=== PATIENT | female | born 1960 | race Caucasian/White ===

== ENCOUNTER → 2021-01-26 09:57 | Outpatient (CLI) | payer OTHER, SELFPAY ==
--- NOTE | ~2021-01-26 | MR_ITS ---
EXAMINATION: MR knee LT wo con DATE: 01/26/2021 10:43 INDICATION: Anterior and lateral left knee pain and swelling post injury 3 months prior. TECHNIQUE: Magnetic resonance imaging (MRI) of the left knee was performed without intravenous contra st. Sequences included coronal PD-weighted FSE, coronal PD-weighted FS FSE, sagittal T2-weighted FSE , sagittal PD-weighted FS FSE and axial PD weighted fat saturated FSE. COMPARISON: None. FINDINGS: Medial compartment: Longitudinal horizontal tear extending to the inferior articular surface at the junction of the media l meniscal body and posterior horn. Articular cartilage is normal. Lateral compartment: Lateral meniscus is normal. 7 x 4 mm region of deep deep chondral fissuring/ulceration involving grea ter than 50% the cartilage thickness at the central weightbearing lateral femoral condyle. Remaining cartilage in the lateral compartment appears relatively normal. Patellofemoral compartment: Large regions of full/near full-thickness chondral ulceration at the patellar apical ridge and latera l facet with scattered mild subarticular edema. Additional juxtaposed deep chondral ulceration with m ore prominent subarticular edema at the superolateral quadrant of the lateral trochlea. Very small ce ntral subchondral osteophyte underlying an additional very small region of deep fissuring at the infe rior aspect of the medial trochlea. Ligaments and tendons: Anterior and posterior cruciate ligaments are normal. The medial collateral ligament and fibular aubree ateral ligament complex are normal. The extensor mechanism is normal. The visualized medial and later al hamstring tendons as well as the iliotibial band are normal. Fluid: Large left knee joint effusion with mild synovitis at the suprapatellar pouch. No loose osteochondral bodies identified. Osseous/other: Normal marrow signal aside from the previous noted subarticular edema. No fracture or pathologic sabi ow replacing process. IMPRESSION: 1. Small longitudinal horizontal tear at the junction of the body and posterior horn of the medial me niscus. 2. Osteoarthritis, moderate severity with extensive high-grade chondral malacia in the patellofemoral compartment and mild in the lateral compartment with small region of moderate grade chondromalacia a t the central weightbearing lateral femoral condyle. 3. Likely reactive large left knee joint effusion. Reviewed, dictated and finalized at location B. [facility] EARLY INTERVENTION IMPRESSION: 1. Small longitudinal horizontal tear at the junction of the body and posterior horn of the medial meniscus. 2. Osteoarthritis, moderate severity with extensive high-grade chondral malacia in the patellofemoral compartment and mild in the lateral compartment with sma ll region of moderate grade chondromalacia at the central weightbearing lateral femoral condyle. 3. Likely reactive large left knee joint effusion.
== END ==
PROVIDERS: PCP Family Medicine
DX: S83.242A Other tear of medial meniscus, current injury, left knee, initial encounter (principal); M25.462 Effusion, left knee; M17.12 Unilateral primary osteoarthritis, left knee
CPT/HCPCS: 73721

== ENCOUNTER → 2021-01-26 10:01 | Outpatient (CLI) | payer OTHER, SELFPAY ==
--- NOTE | ~2021-01-26 | MM_ITS ---
EXAMINATION: MM screening [facility] w rayne HISTORY: Screening TECHNIQUE: Craniocaudal and mediolateral oblique 3-D tomosynthesis images were obtained and synthetic 2-D images were generated. CAD analysis was submitted and interpreted. COMPARISON: Comparison to multiple prior studies sequentially, with oldest reviewed study dated 12/15. BREAST PARENCHYMAL COMPOSITION: There are scattered areas of fibroglandular density. FINDINGS: There is no evidence of suspicious mass, calcification, or architectural distortion to sugg est malignancy in either breast. There has been no suspicious interval change. IMPRESSION: 1. No mammographic evidence of malignancy. 2. Recommend routine screening mammography in one year. BI-RADS Category 1: Negative Reviewed, dictated and finalized at location A. [employer]
== END ==
PROVIDERS: PCP Family Medicine; Visit Provider Obstetrics & Gynecology
DX: Z12.31 Encounter for screening mammogram for malignant neoplasm of breast (principal)
CPT/HCPCS: 77063; 77067

== ENCOUNTER 2021-02-11 09:31 | Outpatient (CLI) | payer OTHER, SELFPAY | END 2021-02-11 09:32 | disposition home or self-care (01) | LOC: ANHCOVIDVC 09:32 | PROVIDERS: PCP Family Medicine | DX: Z23 Encounter for immunization (principal) | CPT/HCPCS: 0001A; 91300 ==

== ENCOUNTER 2021-03-04 09:30 | Outpatient (CLI) | payer OTHER, SELFPAY | END 2021-03-04 09:31 | disposition home or self-care (01) | LOC: ANHCOVIDVC 09:30 | PROVIDERS: PCP Family Medicine | DX: Z23 Encounter for immunization (principal) | CPT/HCPCS: 0002A; 91300 ==

== ENCOUNTER → 2023-10-19 14:12 | Outpatient (CLI) | payer MEDICARE, SELFPAY ==
--- NOTE | ~2023-10-19 | MM_ITS ---
EXAMINATION: MM screening [facility] w rayne HISTORY: Screening mammogram TECHNIQUE: Craniocaudal and mediolateral oblique 3-D tomosynthesis images were obtained and synthetic 2-D images were generated. CAD analysis was submitted and interpreted. COMPARISON: 01/26/2021, 07/18/2019 bilateral screening mammogram examinations BREAST PARENCHYMAL COMPOSITION: There are scattered areas of fibroglandular density. FINDINGS: There is no evidence of suspicious mass, calcification, or architectural distortion to sugg est malignancy in either breast. There has been no suspicious interval change. IMPRESSION: 1. No mammographic evidence of malignancy. 2. Recommend routine screening mammography in one year. BI-RADS Category 1: Negative Reviewed, dictated and finalized at location A. [place]
== END ==
PROVIDERS: PCP Family Medicine; Visit Provider Family Medicine
DX: Z12.31 Encounter for screening mammogram for malignant neoplasm of breast (principal)
CPT/HCPCS: 77063; 77067

== ENCOUNTER 2024-04-02 11:50 | Outpatient (CLI) | payer MEDICARE, SELFPAY ==
[2024-04-02 12:39] LABS: Hematocrit 43.1 % (37.0-47.0); Hemoglobin 14.5 g/dL (12.0-15.0); Mean Corpuscular HGB Conc 33.6 g/dl (32-36); Mean Corpuscular Hemoglobin 34.3 pg (26-34); Mean Corpuscular Volume 101.9 fl (80-100); Platelet Count Result 252 k/mm3 (150-375); Red Blood Count 4.23 M/mm3 (4.2-5.4); Red Cell Distribution Width 13.2 % (11.5-14.5)
[2024-04-02 12:47] LABS: Alanine Aminotransferase 25 U/L (6-35); Albumin Level 4.8 g/dL (3.5-5.1); Alkaline Phosphatase 83 U/L (38-126); Anion Gap 6 mmol/L (4-12); Aspartate Amino Transferase 31 U/L (14-36); Bilirubin,Total 0.8 mg/dL (0.2-1.3); Blood Urea Nitrogen 14 mg/dL (7-17); Calcium 10.1 mg/dL (8.4-10.2); Carbon Dioxide 30 mmol/L (22-30); Chloride 104 mmol/L (98-107); Estimated Glomerular Filt Rate > 60; Glucose 107 mg/dL (65-110); Potassium 4.1 mmol/L (3.4-5.0); Sodium 140 mmol/L (137-145)
== END 2024-04-02 11:51 | disposition home or self-care (01) ==
PROVIDERS: PCP Family Medicine; Visit Provider Nurse Practitioner Family
DX: R19.7 Diarrhea, unspecified (principal); K21.9 Gastro-esophageal reflux disease without esophagitis
CPT/HCPCS: 36415; 80053; 84443; 85027

== ENCOUNTER 2024-04-03 11:54 | Outpatient (CLI) | payer MEDICARE, SELFPAY ==
[2024-04-09 20:23] LABS: Fecal Fat, Ql NORMAL (NORMAL)
[2024-04-11 15:03] LABS: Calprotectin, Stool 9 mcg/g
== END 2024-04-03 11:55 | disposition home or self-care (01) ==
LOC: ANHLAB 11:56
PROVIDERS: PCP Family Medicine; Visit Provider Nurse Practitioner Family
DX: R19.7 Diarrhea, unspecified (principal)
CPT/HCPCS: 82705; 83993; 87045; 87177; 87209; 87427; 87449; 87493

== ENCOUNTER 2024-04-30 07:15 | Day surgery (SDC) | payer MEDICARE, SELFPAY ==
[2024-04-04 08:02] VITALS: BMI 27.6
--- NOTE | 2024-04-24 09:48 | PM.HPGS ---
History of Present Illness History of Present Illness Consent: Risks, benefits, and alternatives have been discussed and questions answered. Patient agrees to proceed with procedure. Chief complaint: Heartburn, Diarrhea Narrative: Kaur Sanchez is a 64 year old female with c/o of increasing diarrhea and heartburn. She has known hx of microscopic colitis first dx in and has been maintained on 6 mg budesonide daily since. She has tried to stop the budesonide in the past but will have more frequent loose stools. For the past 1-2 months with increasing loose stools. She can have anywhere from 1 stool to 6 stools per day and Stools range from 6-7 on BSS. BM occur most often in the AM and last until around 2 pm. Eggs, lettuce and coffee seem to trigger diarrhea. She denies any associated abdominal pain, melena, hematochezia or fevers. Since October She has been troubled with increase heartburn and indigestion that comes and goes. has epigastric discomfort that radiates up into mid-chest area. Heartburn is worse after coffee and meals and improves with Pepcid as needed.? She denies any SOB or pain radiating to her jaw or left arm. Reports intermittent dysphagia to bread but this is very rare. Review of Systems Review of Systems: All systems reviewed & are unremarkable except as noted in HPI and below PMFSH Past Medical History Medical History Diarrhea Heartburn Microscopic colitis Surgical History Surgical History History of 2 sections 1983, 1986 History of arthroscopy of knee right 2010 History of cholecystectomy 12/2004 History of laparoscopy unilateral oopherectomy 1976 History of removal of pigmented skin lesion wart removal 01/2023 History of tonsillectomy 1964 History of total abdominal hysterectomy and bilateral salpingo-oophorectomy 08/2003 Hx of LASIK Family History Family History Mother Leukemia Father Lung cancer Non-Hodgkin lymphoma Daughter Osteosarcoma Sibling BCC (basal cell carcinoma of skin) Lung cancer Social History Social History Smoking status: Former smoker Alcohol intake: current Drinks per week: 14 Substance use: never Substance use type: does not use Lack of Transportation: No Lack of Food: Never True Current Housing: I Have Housing Concerned About Future Housing: No Difficulty Paying Gas/Electric Bills: No Difficulty Paying for Meds: No Currently Unemployed: YES Education: Master's Degree or Higher Difficulty w/ Childcare or Family Care: No Living arrangements: with family Occupation/Education: retired Gender identity (if verbalized by the patient): Female Sexual Orientation (if Verbalized by the Patient): Straight or Heterosexual Meds Home Medications and Allergies Home Medications Medication Instructions Recorded Confirmed Type famotidine 20 mg tablet 20 mg PO DAILY PRN Acid Reflux 03/03/21 04/30/24 History valacyclovir 1 gram tablet 1,000 mg PO DAILY 02/28/23 04/30/24 History budesonide 3 mg 9 mg PO DAILY #270 ea 05/10/23 04/30/24 Rx capsule,delayed,extended release colestipol 1 gram tablet 1 g PO .HS #30 tabs 04/06/24 04/30/24 Rx multivitamin 1 tablet PO DAILY 04/18/24 04/30/24 History Allergies Allergy/AdvReac Type Severity Reaction Status Date / Time amoxicillin Allergy Mild HIVES Verified 04/30/24 08:22 naproxen Allergy Mild HIVES Verified 04/30/24 08:22 etodolac Allergy Rash Verified 04/30/24 08:22 latex Allergy Rash Verified 04/30/24 08:22 sulfamethoxazole Allergy Rash Verified 04/30/24 08:22 [From Bactrim] trimethoprim [From Bactrim] Allergy Rash Verified 04/30/24 08:22 Exam Const: General: alert Orientation/consciousness: patient oriented x3 Resp: Auscultation: clear t
[2024-04-30 08:23] VITALS: BP 129/78; PULSE 64; RESP 16; TEMP 36.9; O2SAT 100
[2024-04-30] MEDS: LACTATED RINGERS 1,000 ML 150 ML IV CONT (08:31)
--- NOTE | 2024-04-30 08:39 | WPDANESEPPF ---
Anes - Initial Pre Proc Eval Procedure: Operation Date: 04/30/24 09:30 Proposed Procedures p Esophagogastroduodenoscopy - Gómez Martinez MD Date/Time: 04/30/24 08:39 Surgeon: Gómez Martinez MD Pre Op Diagnosis: Heartburn, Diarrhea Patient Data Age: 64 Gender: F Height: 1.63 m Weight: 71.5 kg Last Vital Signs Temp 36.9 C 04/30/24 08:23 Pulse 64 04/30/24 08:23 Resp 16 04/30/24 08:23 BP 129/78 04/30/24 08:23 Pulse Ox 100 04/30/24 08:23 O2 Del Method Room Air 04/30/24 08:23 Allergies Allergy/AdvReac Type Severity Reaction Status Date / Time amoxicillin Allergy Mild HIVES Verified 04/30/24 08:22 naproxen Allergy Mild HIVES Verified 04/30/24 08:22 etodolac Allergy Rash Verified 04/30/24 08:22 latex Allergy Rash Verified 04/30/24 08:22 sulfamethoxazole Allergy Rash Verified 04/30/24 08:22 [From Bactrim] trimethoprim [From Bactrim] Allergy Rash Verified 04/30/24 08:22 Home Medications Medication Instructions Recorded Confirmed Type famotidine 20 mg tablet 20 mg PO DAILY PRN Acid Reflux 03/03/21 04/30/24 History valacyclovir 1 gram tablet 1,000 mg PO DAILY 02/28/23 04/30/24 History budesonide 3 mg 9 mg PO DAILY #270 ea 05/10/23 04/30/24 Rx capsule,delayed,extended release colestipol 1 gram tablet 1 g PO .HS #30 tabs 04/06/24 04/30/24 Rx multivitamin 1 tablet PO DAILY 04/18/24 04/30/24 History Patient hx anesthesia problems: none Family hx anesthesia problems: none Results Review: All pre-operative results and documents have been reviewed as part of the pre-operative evaluation. [facility] Past Medical History Medical History Diarrhea Heartburn Microscopic colitis Surgical History Surgical History History of 2 sections 1983, 1986 History of arthroscopy of knee right 2010 History of cholecystectomy 12/2004 History of laparoscopy unilateral oopherectomy 1977 History of removal of pigmented skin lesion wart removal 01/2023 History of tonsillectomy 1964 History of total abdominal hysterectomy and bilateral salpingo-oophorectomy 08/2003 Hx of LASIK Family History Family History Mother Leukemia Father Lung cancer Non-Hodgkin lymphoma Daughter Osteosarcoma Sibling BCC (basal cell carcinoma of skin) Lung cancer Social History Social History Smoking status: Former smoker Alcohol intake: current Drinks per week: 14 Substance use: never Substance use type: does not use Lack of Transportation: No Lack of Food: Never True Current Housing: I Have Housing Concerned About Future Housing: No Difficulty Paying Gas/Electric Bills: No Difficulty Paying for Meds: No Currently Unemployed: YES Education: Master's Degree or Higher Difficulty w/ Childcare or Family Care: No Living arrangements: with family Occupation/Education: retired Gender identity (if verbalized by the patient): Female Sexual Orientation (if Verbalized by the Patient): Straight or Heterosexual Anes - Eval Final PreProcedure Day of Procedure 04/30/24 08:39 Patient weight: overweight Heart: regular rate and rhythm Lungs: clear to auscultation Airway: Mallampati scale class II Neurological: alert and oriented Last oral intake: >/= 8 hours ASA classification: II Emergent: no Anesthetic plan: proceed Anesthesia type and monitoring: general GIVS and standard monitoring Results Review: All pre-operative results and documents have been reviewed as part of the pre-operative evaluation. Informed Consent: The patient's anesthetic plan and its attendant risks and benefits were discussed with the patient/family/POA. Questions were solicited and answers provided to the satisfaction of the patient/family/POA.
[2024-04-30 09:46] VITALS: BP 110/66; PULSE 78; RESP 16; O2SAT 99
[2024-04-30 09:56] VITALS: BP 123/76; PULSE 60; RESP 16; O2SAT 100
[2024-04-30 10:06] VITALS: BP 119/81; PULSE 60; RESP 15; O2SAT 100
--- NOTE | 2024-04-30 10:35 | WPDANESPN ---
Anes - Prog Note Post-Op Date/Time: 04/30/24 10:35 Cardiovascular status: normal Respiratory status: normal Airway patency: baseline Mental status: baseline Post-Op hydration status: normal Vital Signs: Last Vital Signs Temp 36.9 C 04/30/24 08:23 Pulse 60 04/30/24 10:06 Resp 15 04/30/24 10:06 BP 119/81 04/30/24 10:06 Pulse Ox 100 04/30/24 10:06 O2 Del Method Room Air 04/30/24 10:06 Pain Score (VAS): 0/10 I/O: Intake & Output 04/29/24 04/30/24 04/30/24 23:59 07:59 15:59 Intake Total 400 Balance 400 Patient Feedback: Patient satisfied with anesthetic care.
== END 2024-04-30 10:18 | disposition home or self-care (01) ==
PROVIDERS: PCP Family Medicine; Visit Provider Internal Medicine Gastroenterology
PROC: 0DJ08ZZ Inspection of Upper Intestinal Tract, Via Natural or Artificial Opening Endoscopic (ICD-10-PCS; CPT 43235; principal; 2024-04-30 09:30)
DX: K21.9 Gastro-esophageal reflux disease without esophagitis (principal); R10.13 Epigastric pain; K21.00 Gastro-esophageal reflux disease with esophagitis, without bleeding; K29.70 Gastritis, unspecified, without bleeding; R13.19 Other dysphagia
CPT/HCPCS: 43239

== ENCOUNTER 2024-04-30 13:21 | Outpatient (NON) | payer MEDICARE, SELFPAY | END 2024-04-30 13:22 | disposition home or self-care (01) | LOC: ANHLAB 05-01 13:23 | PROVIDERS: PCP Family Medicine; Visit Provider Internal Medicine Gastroenterology | DX: K22.89 Other specified disease of esophagus (principal) | CPT/HCPCS: 88305 ==

== ENCOUNTER 2025-02-05 13:19 | Outpatient (CLI) | payer MEDICARE, SELFPAY ==
--- NOTE | ~2025-02-05 | MM_ITS ---
EXAMINATION: MM screening [facility] BI w rayne HISTORY: Screening mammogram TECHNIQUE: Craniocaudal and mediolateral oblique 3-D tomosynthesis images were obtained and synthetic 2-D images were generated. CAD analysis was submitted and interpreted. COMPARISON: 10/17/2023, 01/26/2021, 07/18/2019 BREAST PARENCHYMAL COMPOSITION:Not Dense. There are scattered areas of fibroglandular density. FINDINGS: No suspicious mass, calcification, or architectural distortion are identified in either kristine ast to suggest malignancy. There has been no suspicious interval change. IMPRESSION: No mammographic evidence of malignancy. Recommend routine screening mammography in one year. BI-RADS Category 1: Negative Reviewed, dictated and finalized at location .
== END 2025-02-05 13:20 | disposition home or self-care (01) ==
LOC: MICIMG 13:21
PROVIDERS: PCP Family Medicine; Visit Provider Family Medicine
DX: Z12.31 Encounter for screening mammogram for malignant neoplasm of breast (principal)
CPT/HCPCS: 77063; 77067

== ENCOUNTER 2025-07-18 14:12 | Outpatient (CLI) | payer MEDICARE, SELFPAY ==
--- NOTE | ~2025-07-18 | XR_ITS ---
XR shoulder RT min 2V 07/18/2025 14:27 Indication: Right shoulder pain Procedure: 4 views right shoulder Comparison: No prior studies for comparison. Findings: No fracture, subluxation or dislocation. No significant degenerative change. No soft tissue abnormality. No foreign bodies. Impression: 1: No significant bone or joint abnormality. Reviewed, dictated and finalized at location O. Impression: 1: No significant bone or joint abnormality.
== END 2025-07-18 14:13 | disposition home or self-care (01) ==
LOC: GOSHIMG 14:13
PROVIDERS: PCP Family Medicine; Visit Provider Family Medicine
DX: M25.511 Pain in right shoulder (principal)
CPT/HCPCS: 73030

== ENCOUNTER 2025-08-13 10:08 | Outpatient (CLI) | payer MEDICARE, SELFPAY ==
--- NOTE | ~2025-08-13 | MR_ITS ---
EXAMINATION: MR shoulder RT wo con DATE: 08/13/2025 10:44 INDICATION: Pain in right shoulder. TECHNIQUE: Magnetic resonance imaging (MRI) of the right shoulder was performed without intravenous contrast. Sequences included axial PD-weighted FS FSE, coronal oblique PD-weighted FS FSE and T2-weighted FS FSE, and sagittal oblique T2-weighted FS FSE and T1-weighted FSE. COMPARISON: Right shoulder radiographs 07/18/2025 FINDINGS: Coracoacromial arch: The acromion undersurface is curved in morphology (type II). There is moderate acromioclavicular joint osteoarthritis. There is moderate subacromial/subdeltoid bursitis. Rotator cuff: There is severe supraspinatus and infraspinatus tendinopathy. There is a bursal sided tear of the conjoined portion of supraspinatus and infraspinatus tendons measuring 4 mm anterior to posterior by 3.2 cm proximal to distal by 4/5 tendon thickness. Teres minor tendon is normal. There is mild subscapularis tendinopathy. There is no asymmetric fatty atrophy of the rotator cuff muscle bellies. Biceps tendon and glenoid labrum: Biceps tendon is in bicipital groove. There is mild intra-articular biceps tendinopathy. The there is degeneration of the glenoid labrum without well- defined tear. Fluid: There is no glenohumeral joint effusion. Bones/cartilage: There is cartilage surface irregularity of humeral head and glenoid. IMPRESSION: 1. Severe rotator cuff tendinopathy with bursal-sided partial thickness tear of the conjoined portion of the supraspinatus and infraspinatus tendons. 2. Mild glenohumeral joint chondrosis. 3. Moderate acromioclavicular joint osteoarthritis. 4. Mild intra-articular biceps tendinopathy. 5. Moderate subacromial/subdeltoid bursitis. Reviewed, dictated and finalized at location E.
== END 2025-08-13 10:09 | disposition home or self-care (01) ==
LOC: MICIMG 10:09
PROVIDERS: PCP Family Medicine; Visit Provider Family Medicine
DX: M19.011 Primary osteoarthritis, right shoulder (principal); M75.51 Bursitis of right shoulder
CPT/HCPCS: 73221

== ENCOUNTER 2025-11-11 07:34 | Day surgery (SDC) | payer MEDICARE, SELFPAY ==
[2025-10-30 13:11] VITALS: BMI 27.5
[2025-11-11 08:16] VITALS: BP 146/87; PULSE 71; RESP 16; TEMP 37.3; O2SAT 100
[2025-11-11] MEDS: LACTATED RINGERS 1,000 ML 150 ML IV CONT (08:27)
--- NOTE | 2025-11-11 08:39 | WPDANESEPPF ---
Anes - Initial Pre Proc Eval Procedure: Operation Date: 11/11/25 09:30 Proposed Procedures p Screening Colonoscopy - Augustine Morales MD Date/Time: 11/11/25 08:39 Surgeon: Augustine Morales MD Pre Op Diagnosis: Screening Patient Data Age: 65 Gender: F Height: 1.63 m Weight: 75.85 kg Last Vital Signs Temp 99.1 F 11/11/25 08:16 Pulse 71 11/11/25 08:16 Resp 16 11/11/25 08:16 BP 146/87 H 11/11/25 08:16 Pulse Ox 100 11/11/25 08:16 O2 Del Method Room Air 11/11/25 08:16 Allergies Allergy/AdvReac Type Severity Reaction Status Date / Time amoxicillin Allergy Mild HIVES Verified 11/11/25 08:15 naproxen Allergy Mild HIVES Verified 11/11/25 08:15 etodolac Allergy Rash Verified 11/11/25 08:15 latex Allergy Rash Verified 11/11/25 08:15 sulfamethoxazole (From Allergy Rash Verified 11/11/25 08:15 Bactrim) trimethoprim (From Bactrim) Allergy Rash Verified 11/11/25 08:15 Home Medications ?Medication ?Instructions ?Recorded ?Confirmed ?Type valacyclovir 1 gram tablet 1,000 mg PO DAILY 02/28/23 11/11/25 History pantoprazole 20 mg tablet,delayed 20 mg PO QAM 3 months #90 tabs 10/15/25 11/11/25 Rx release budesonide 3 mg 9 mg (3 x 3 mg) PO DAILY #270 ea 10/19/25 11/11/25 Rx capsule,delayed,extended release mecobalamin (vitamin B12) 1,000 1,000 mcg PO DAILY 10/30/25 11/11/25 History mcg chewable tablet melatonin 5 mg capsule 5 mg PO HS 10/30/25 11/11/25 History multivitamin (Daily Multi-Vitamin 1 tablet PO DAILY 10/30/25 11/11/25 History tablet) Patient hx anesthesia problems: none Family hx anesthesia problems: none Results Review: All pre-operative results and documents have been reviewed as part of the pre-operative evaluation. [facility] Past Medical History Medical History Elevated blood pressure reading without diagnosis of hypertension Macrocytosis without anemia Pure hypercholesterolemia, unspecified Microscopic colitis Surgical History Surgical History History of removal of pigmented skin lesion wart removal 01/2023 History of laparoscopy unilateral oopherectomy 1977 History of tonsillectomy 1964 History of total abdominal hysterectomy and bilateral salpingo-oophorectomy 08/2003 History of arthroscopy of knee right 2010 History of cholecystectomy 12/2004 Hx of LASIK History of 2 sections 1983, 1986 Family History Family History Mother Leukemia Father Lung cancer Non-Hodgkin lymphoma Daughter Osteosarcoma Sibling BCC (basal cell carcinoma of skin) Lung cancer Social History Social History Smoking status: Former smoker Tobacco type: cigarettes Alcohol intake: current Drinks per week: 14 Substance use: never Substance use type: does not use Lack of Transportation: No Lack of Food: Never True Current Housing: I Have Housing Concerned About Future Housing: No Difficulty Paying Gas/Electric Bills: No Difficulty Paying for Meds: No Currently Unemployed: YES Education: Master's Degree or Higher Difficulty w/ Childcare or Family Care: No Living arrangements: with family Occupation/Education: retired Gender identity (if verbalized by the patient): Female Sexual Orientation (if Verbalized by the Patient): Straight or Heterosexual Spiritual care concerns: No Anes - Eval Final PreProcedure Day of Procedure 11/11/25 08:39 Heart: regular rate and rhythm Lungs: clear to auscultation Airway: Mallampati scale class II Neurological: alert and oriented Last oral intake: >/= 8 hours ASA classification: II Anesthetic plan: proceed Anesthesia type and monitoring: general Results Review: All pre-operative results and documents have been reviewed as part of the pre-operative evaluation. Informed Consent: The patient's anesthetic plan and its attendant risks and benefits were discussed with the patient/family/POA. Questions were solicited and answers provided to the satisfaction of the patient/family/POA.
--- NOTE | 2025-11-11 09:17 | PM.IMHP2 ---
H&P: HPI History of Present Illness Date/Time: 11/11/25 09:17 Chief Complaint: screening colonoscopy Narrative: This is the patient's 2nd colonoscopy. there is no family history of colorectal cancer. she has a diagnosis of microscopic colitis several years, and is currently taking budesonide. she was recently found to be Cologuard positive. Review of Systems Review of Systems: All systems reviewed & are unremarkable except as noted in HPI and below PMFSH Past Medical History Medical History Elevated blood pressure reading without diagnosis of hypertension Macrocytosis without anemia Pure hypercholesterolemia, unspecified Microscopic colitis Surgical History Surgical History History of removal of pigmented skin lesion wart removal 01/2023 History of laparoscopy unilateral oopherectomy 1976 History of tonsillectomy 1964 History of total abdominal hysterectomy and bilateral salpingo-oophorectomy 08/2003 History of arthroscopy of knee right 2010 History of cholecystectomy 12/2004 Hx of LASIK History of 2 sections 1983, 1986 Family History Family History Mother Leukemia Father Lung cancer Non-Hodgkin lymphoma Daughter Osteosarcoma Sibling BCC (basal cell carcinoma of skin) Lung cancer Social History Social History Smoking status: Former smoker Tobacco type: cigarettes Alcohol intake: current Drinks per week: 14 Substance use: never Substance use type: does not use Lack of Transportation: No Lack of Food: Never True Current Housing: I Have Housing Concerned About Future Housing: No Difficulty Paying Gas/Electric Bills: No Difficulty Paying for Meds: No Currently Unemployed: YES Education: Master's Degree or Higher Difficulty w/ Childcare or Family Care: No Living arrangements: with family Occupation/Education: retired Gender identity (if verbalized by the patient): Female Sexual Orientation (if Verbalized by the Patient): Straight or Heterosexual Spiritual care concerns: No Meds Home Medications and Allergies Home Medications ?Medication ?Instructions ?Recorded ?Confirmed ?Type valacyclovir 1 gram tablet 1,000 mg PO DAILY 02/28/23 11/11/25 History pantoprazole 20 mg tablet,delayed 20 mg PO QAM 3 months #90 tabs 10/15/25 11/11/25 Rx release budesonide 3 mg 9 mg (3 x 3 mg) PO DAILY #270 ea 10/19/25 11/11/25 Rx capsule,delayed,extended release mecobalamin (vitamin B12) 1,000 1,000 mcg PO DAILY 10/30/25 11/11/25 History mcg chewable tablet melatonin 5 mg capsule 5 mg PO HS 10/30/25 11/11/25 History multivitamin (Daily Multi-Vitamin 1 tablet PO DAILY 10/30/25 11/11/25 History tablet) Allergies Allergy/AdvReac Type Severity Reaction Status Date / Time amoxicillin Allergy Mild HIVES Verified 11/11/25 08:15 naproxen Allergy Mild HIVES Verified 11/11/25 08:15 etodolac Allergy Rash Verified 11/11/25 08:15 latex Allergy Rash Verified 11/11/25 08:15 sulfamethoxazole (From Allergy Rash Verified 11/11/25 08:15 Bactrim) trimethoprim (From Bactrim) Allergy Rash Verified 11/11/25 08:15 Vital Signs Vital Signs - 24 hr 11/11/25 08:16 Temperature 99.1 F Pulse Rate 71 Respiratory Rate 16 Blood Pressure 146/87 H Pulse Oximetry 100 Oxygen Delivery Room Air Exam Const: General: cooperative and healthy appearing Resp: Effort & Inspection: normal respiratory effort and able to speak in complete sentences Auscultation: clear to auscultation bilaterally Cardio: Rate: regular rate Rhythm: regular rhythm GI: Inspection: normal to inspection GI Palp: No No hepatosplenomegaly present Auscultation: normal bowel sounds Rectal Exam: deferred Skin: General skin exam: normal color Psych: Appearance: grossly normal Mental Status: mental status grossly normal Assessment and Plan Assessment and plan (1) Microscopic colitis: Qualifiers: Microscopic colitis type: unspecified Qualified Code(s): K52.839 - Microscopic colitis, unspecified Code(s): K52.839 - Microscopic colitis, unspecified Status: Acute (2) Positive colorectal cancer screening using Cologuard test: Code(s): R19.5 - Other fecal abnormalities Status: Acute Assessment and Plan: The patient is deemed a good candidate for the procedure. Consent signed. Will proceed.
--- NOTE | 2025-11-11 09:33 | WPDANESPN ---
Anes - Prog Note Post-Op Date/Time: 11/11/25 09:33 Vital Signs: Last Vital Signs Temp 99.1 F 11/11/25 08:16 Pulse 71 11/11/25 08:16 Resp 16 11/11/25 08:16 BP 146/87 H 11/11/25 08:16 Pulse Ox 100 11/11/25 08:16 O2 Del Method Room Air 11/11/25 08:16 Pain Score (VAS): no Patient Feedback: Patient satisfied with anesthetic care.
[2025-11-11 09:57] VITALS: BP 114/75; PULSE 77; RESP 15; O2SAT 100
[2025-11-11 10:07] VITALS: BP 120/88; PULSE 76; RESP 16; O2SAT 100
[2025-11-11 10:17] VITALS: BP 136/77; PULSE 66; RESP 18; O2SAT 100
== END 2025-11-11 10:50 | disposition home or self-care (01) ==
PROVIDERS: PCP Family Medicine; Referring Provider Family Medicine; Visit Provider Internal Medicine Gastroenterology
PROC: 0DJD8ZZ Inspection of Lower Intestinal Tract, Via Natural or Artificial Opening Endoscopic (ICD-10-PCS; CPT 45378; principal; 2025-11-11 09:30)
DX: Z12.11 Encounter for screening for malignant neoplasm of colon (principal); R19.5 Other fecal abnormalities; D12.2 Benign neoplasm of ascending colon; D12.3 Benign neoplasm of transverse colon; D12.8 Benign neoplasm of rectum; K52.832 Lymphocytic colitis
CPT/HCPCS: 45385; 45380

== ENCOUNTER 2025-11-11 11:34 | Outpatient (NON) | payer MEDICARE, SELFPAY ==
--- NOTE | 2025-11-11 | S_PTH ---
PATIENT: Kaur Sanchez LOC: [facility] U#:[id number] AGE/SX: 65/F ROOM: RE11/11/[address]: Augustine Morales MD : 1960 BED: DIS: 11/11/2025 SPEC #: [id number] RECD: 11/11/25 13:16 STATUS: ROMEO RERojelio #: [id number] PERNELL: 11/11/25 00:[address]: Augustine Morales DEPT: [facility] Surgical RECD BY: Clara Hanley ENTERED: 11/11/25 13:29 SP TYPE: Surgical OTHR DR: Cliff Foster MD Tissues: A - Colon Biopsy B - Colon Biopsy C - Colon Polypectomy D - Colon Polypectomy E - Rectal Polyp Procedures: Hematoxylin and Eosin Stain Gross and Microscopic Level 4
== END 2025-11-11 11:35 | disposition home or self-care (01) ==
LOC: ANHLAB 11:35
PROVIDERS: PCP Family Medicine; Visit Provider Internal Medicine Gastroenterology
DX: D12.2 Benign neoplasm of ascending colon (principal); D12.3 Benign neoplasm of transverse colon; D12.8 Benign neoplasm of rectum; K52.832 Lymphocytic colitis
CPT/HCPCS: 88305